=== PATIENT | male | born 1960 | race Caucasian/White ===

== ENCOUNTER 2017-03-18 10:02 | Emergency (ER) | payer SELFPAY ==
[~2017-03-18] VITALS: Ht 182.9 cm; Wt 105.1 kg
[2017-03-18 10:06] VITALS: BP 148/84
[2017-03-18] MEDS ORDERED: IBUPROFEN 200 MG TABLET ONE (10:45)
[2017-03-18] MEDS ORDERED: IBUPROFEN 200 MG TABLET PO ONE (11:00)
== END 2017-03-18 11:13 | disposition home or self-care (01) ==
LOC: ED 11:09
DX: G89.29 Other chronic pain (principal); M25.572 Pain in left ankle and joints of left foot; M25.571 Pain in right ankle and joints of right foot; M72.2 Plantar fascial fibromatosis
CPT/HCPCS: 99283